=== PATIENT | male | born 1955 | race Caucasian/White ===

== ENCOUNTER 2022-10-12 07:08 | Outpatient (CLI) | payer MEDICARE, SELFPAY ==
--- NOTE | ~2022-10-12 | MR_ITS ---
EXAMINATION: MR brain/brain stem wo/w con DATE: 10/12/2022 08:19 INDICATION: Near syncope. TECHNIQUE: Magnetic resonance imaging (MRI) of the brain and brainstem was performed without and with 14 mL MultiHance intravenous contrast. COMPARISON: None. FINDINGS: There are scattered areas of nonspecific increased T2-weighted signal intensity in the cere bral white matter, which is within normal limits for the patient's age. There is no intracranial hemo rrhage, acute infarction, or abnormal intracranial mass lesion. The ventricles are normal in size. Th e orbits are normal. The mastoid air cells are normal. IMPRESSION: 1. Normal aging brain. Reviewed, dictated and finalized at location A. IMPRESSION: 1. Normal aging brain.
--- NOTE | ~2022-10-12 | US_ITS ---
EXAMINATION: US carotid duplex BI DATE: 10/12/2022 08:28 INDICATION: Near syncope. TECHNIQUE: Grayscale, color Doppler, and pulsed Doppler images of the cervical carotid arteries were obtained. The degree of vessel stenosis is placed in one of the following categories: normal, <50%, 5 0-69%, >=70% but less than near-occlusion, near-occlusion, or total occlusion. Note that percent sten osis relative to normal distal artery lumen diameter is indirectly measured from velocity measurement s as described by Salvatore, et al. Radiology 2003; 229:340-346. COMPARISON: None. FINDINGS: RIGHT: The right common carotid artery (CCA) peak systolic velocity (PSV) is 108 cm/s. The right internal ca rotid artery (ICA) PSV is 85 cm/s. The right ICA end-diastolic velocity (EDV) is 28 cm/s. The right I CA/CCA PSV ratio is 0.8. Grayscale and color Doppler images yield an estimate of <50% diameter reduct ion from plaque in the ICA. There is antegrade flow in the right vertebral artery. LEFT: The left CCA PSV is 101 cm/s. The left ICA PSV is 68 cm/s. The left ICA EDV is 22 cm/s. The left ICA/ CCA PSV ratio is 0.7. Grayscale and color Doppler images yield an estimate of <50% diameter reduction from plaque in the ICA. There is antegrade flow in the left vertebral artery. IMPRESSION: 1. <50% stenosis in the right internal carotid artery. 2. <50% stenosis in the left internal carotid artery. Reviewed, dictated and finalized at location A.
== END 2022-10-12 07:09 | disposition home or self-care (01) ==
PROVIDERS: PCP Physician Assistant; Visit Provider Physician Assistant
DX: R55 Syncope and collapse (principal); I65.23 Occlusion and stenosis of bilateral carotid arteries
CPT/HCPCS: 70553; 93880; A9577

== ENCOUNTER 2022-10-21 11:03 | Outpatient (CLI) | payer MEDICARE, SELFPAY ==
[2022-10-21 11:58] LABS: Basophils Absolute Auto 0.1 K/mm3 (0.0-0.1); Basophils Percent Auto 1.4 % (0.2-1.2); Eosinophils Absolute Auto 0.2 K/mm3 (0-0.3); Eosinophils Percent Auto 2.3 % (0-4.4); Hemoglobin 16.3 g/dL (14.0-18.0); Immature Granulocyte Absolute 0.17 K/mm3 (0.00-0.031); Immature Granulocyte Percent A 2.6 % (0-0.5); Lymphocytes Absolute Auto 1.73 K/mm3 (0.9-3.2); Lymphocytes Percent Auto 26.9 % (18.3-44.2); Mean Corpuscular Hemoglobin 30.9 pg (26-34); Mean Corpuscular Volume 90.9 fl (80-100); Mean Platelet Volume 9.5 fl (7.4-10.4); Monocytes Absolute Auto 0.6 K/mm3 (0.1-0.6); Neutrophils Absolute Auto 3.7 K/mm3 (1.3-6.7); Neutrophils Percent Auto 57.8 % (45.5-73.1); Platelet Count Result 221 k/mm3 (150-375); Red Blood Count 5.28 M/mm3 (4.6-6.20); Red Cell Distribution Width 12.9 % (11.5-14.5); White Blood Count 6.4 K/mm3 (4.5-10.0)
[2022-10-21 12:37] LABS: Alanine Aminotransferase 46 U/L (6-50); Albumin Level 4.3 g/dL (3.5-5.1); Alkaline Phosphatase 72 U/L (38-126); Anion Gap 5 mmol/L (8-16); Aspartate Amino Transferase 36 U/L (17-59); Bilirubin,Total 0.9 mg/dL (0.2-1.3); Blood Urea Nitrogen 16 mg/dL (9-20); Calcium 9.2 mg/dL (8.4-10.2); Carbon Dioxide 30 mmol/L (22-30); Chloride 104 mmol/L (98-107); Cholesterol 178 mg/dL (0-200); Estimated Glomerular Filt Rate > 60; Glucose 103 mg/dL (65-110); HDL Direct 44 mg/dL; Potassium 4.6 mmol/L (3.4-5.0); Sodium 139 mmol/L (137-145); Triglycerides 124 mg/dL (<150)
[2022-10-21 12:47] LABS: Hemoglobin A1C 5.5 % (<5.7)
[2022-10-21 12:48] LABS: LDL Cholesterol Direct 105 mg/dL
[2022-10-21 13:19] LABS: Free T4 Free Thyroxine 0.91 ng/mL (0.78-2.19)
== END 2022-10-21 11:04 | disposition home or self-care (01) ==
PROVIDERS: PCP Physician Assistant; Visit Provider Physician Assistant
DX: Z13.1 Encounter for screening for diabetes mellitus (principal); Z79.899 Other long term (current) drug therapy; R55 Syncope and collapse; Z13.220 Encounter for screening for lipoid disorders
CPT/HCPCS: 36415; 80053; 80061; 83036; 84439; 84443; 85025

== ENCOUNTER 2022-10-28 17:09 | Emergency (ER) | payer MEDICARE, SELFPAY ==
--- NOTE | ~2022-10-28 | XR_ITS ---
EXAMINATION: XR finger 3rd RT min 2V DATE: 10/28/2022 17:58 INDICATION: Laceration to the palmar aspect of the right third distal phalanx TECHNIQUE: Dorsal palmar, lateral and oblique views of the right third digit were obtained COMPARISON: None FINDINGS: There is a minute density potentially a foreign body which projects within 1.7 mm of the level of the skin surface at the radial/palmar side of the base of the third distal phalanx. Bone alignment is no rmal. No acute fracture. Old healed diaphyseal fracture of the right fourth metacarpal. Mild osteoart hritis at the third metacarpophalangeal and multiple interphalangeal joints. IMPRESSION: 1. No acute osseous abnormality. 2. Minute, significantly less than 1 mm density, potentially a foreign body located relatively close to the skin surface at the radial/palmar side of the base of the third distal phalanx. Reviewed, dictated and finalized at location A. IMPRESSION: 1. No acute osseous abnormality. 2. Minute, significantly less than 1 mm density, potentially a foreign body loc ated relatively close to the skin surface at the radial/palmar side of the base of the third distal phalanx.
[2022-10-28 17:10] VITALS: BP 124/83; PULSE 70; RESP 16; TEMP 36.8; O2SAT 99
--- NOTE | 2022-10-28 17:37 | ED.WOUNDLAC ---
HPI - Wound/Laceration General Chief Complaint: Wound/Laceration <Smita Dowell PA-C - Last Filed: 10/28/22 22:21> Stated Complaint: cut the tip of two fingers <GAYLE Mattson Last Filed: 10/28/22 22:21> Time Seen by Provider: 10/28/22 17:22 <GAYLE Mattson Last Filed: 10/28/22 22:21> History of Present Illness HPI narrative: 67 y/o M reports for evaluation of a skin avulsion to the distal aspect of his right third finger and right fifth finger that occurred 1 hour prior to arrival while he was using a angelica to cut onions. He denies paresthesias or difficulty moving his hand. Patient reports his last tetanus shot was 2 years ago. He is not on any blood thinners. Denies other complaints or injuries. Pt is established with a hand surgeon from a previous injury. <Smita Dowell PA-C - Last Filed: 10/28/22 22:21> Related Data Allergies/Adverse Reactions: Allergies Allergy/AdvReac Type Severity Reaction Status Date / Time Penicillins Allergy Unknown Verified 05/31/19 10:56 <Smita Dowell PA-C - Last Filed: 10/28/22 22:21> Review of Systems Review of Systems: CONSTITUTIONAL: Denies fever, chills EYES: Denies visual changes, redness, or discharge. ENT: Denies rhinorrhea, congestion, sore throat, or otalgia. CARDIOVASCULAR: Denies chest pain, palpitations, or edema. RESPIRATORY: Denies cough or dyspnea. GASTROINTESTINAL: Denies abdominal pain, nausea, vomiting, or diarrhea. GENITOURINARY: Denies dysuria or hematuria. SKIN: See HPI MUSCULOSKELETAL: Denies back pain, joint pain, or myalgia. NEUROLOGIC: Denies headache, numbness, dizziness, or weakness. PSYCHIATRIC: Denies anxiety or depression. <GAYLE Mattson Last Filed: 10/28/22 22:21> Exam Narrative: GENERAL: Well-appearing, in no acute distress. HEAD: Normocephalic NECK: Supple. CHEST: No respiratory distress. Clear to auscultation, no adventitious breath sounds. HEART: Regular rate and rhythm. No murmur heard. Normal peripheral pulses. EXTREMITIES: Normal range of motion. No edema. SKIN: 1 cm skin avulsion to the distal aspect of the right third finger with small exposure of the muscle, mildly bleeding. 1/4 cm skin avulsion to the distal aspect of the right fifth finger, bleeding controlled. No foreign bodies or other deep structures visualized. Sensation intact throughout. Full range of motion of all fingers. DP pulse 2+. Cap refill less than 2. NEURO: No focal deficits. Alert and oriented x3. PSYCH: Normal mood and affect. <Smita Dowell PA-C - Last Filed: 10/28/22 22:21> Course VENDING ATTENDANT/PA Physician Supervision ITS Impressions Finger X-Ray 10/28/22 18:04 IMPRESSION: 1. No acute osseous abnormality. 2. Minute, significantly less than 1 mm density, potentially a foreign body located relatively close to the skin surface at the radial/palmar side of the base of the third distal phalanx. <Vanita Vargas MD - Last Filed: 10/31/22 01:44> Vital Signs Vital signs: Vital Signs Temperature 98.2 F 10/28/22 17:10 Pulse Rate 70 10/28/22 17:10 Respiratory Rate 16 10/28/22 17:10 Blood Pressure 124/83 10/28/22 17:10 Pulse Oximetry 99 10/28/22 17:10 Temperature 98.2 F 10/28/22 17:10 Pulse Rate 77 10/28/22 20:02 Respiratory Rate 18 10/28/22 20:02 Blood Pressure 119/74 10/28/22 20:02 Pulse Oximetry 99 10/28/22 20:02 <Smita Dowell PA-C - Last Filed: 10/28/22 22:21> Vital Signs Temperature 98.2 F 10/28/22 17:10 Pulse Rate 70 10/28/22 17:10 Respiratory Rate 16 10/28/22 17:10 Blood Pressure 124/83 10/28/22 17:10 Pulse Oximetry 99 10/28/22 17:10 Temperature 98.2 F 10/28/22 17:10 Pulse Rate 77 10/28/22 20:02 Respiratory Rate 18 10/28/22 20:02 Blood Pressure 119/74 10/28/22 20:02 Pulse Oximetry 99 10/28/22 20:02 <Vanita Vargas MD - Last Filed: 10/31/22 01:44>
[2022-10-28] MEDS: HYDROcodone/acetaminophen (*CRX) 5-325 MG TABLET 1 TAB PO ×2 (17:50→19:21)
[2022-10-28] MEDS: CEPHALEXIN 500 MG CAPSULE PO (19:09)
[2022-10-28] MEDS: CELLULOSE OXIDIZED 2 x 3 INCH 1 PKT XX (19:22)
[2022-10-28 20:02] VITALS: BP 119/74; PULSE 77; RESP 18; O2SAT 99
== END 2022-10-28 20:00 | disposition home or self-care (01) ==
PROVIDERS: Emergency Provider Physician Assistant; PCP Physician Assistant
DX: S61.212A Laceration without foreign body of right middle finger without damage to nail, initial encounter (principal); W26.8XXA Contact with other sharp object(s), not elsewhere classified, initial encounter
CPT/HCPCS: 73140; 99283; A9270

== ENCOUNTER 2023-12-22 06:16 | Day surgery (SDC) | payer MEDICARE, SELFPAY ==
[2023-11-17 15:04] VITALS: BMI 23.8
[2023-12-13 09:47] VITALS: BMI 23.6
--- NOTE | 2023-12-21 13:46 | P.PNAN_ITS ---
Anes - Initial Pre Proc Eval Procedure: Operation Date: 12/22/23 08:00 Proposed Procedures p Esophagogastroduodenoscopy - Jeffery Szymanski MD s Diagnostic Colonoscopy - Jeffery Szymanski MD Date/Time: 12/21/23 13:46 Surgeon: Jeffery Szymanski MD Pre Op Diagnosis: Dysphagia and Family HX Colon Cancer Patient Data Age: 68 Gender: M Height: 1.73 m Weight: 70.5 kg Allergies Allergy/AdvReac Type Severity Reaction Status Date / Time Penicillins Allergy Unknown Verified 12/22/23 06:53 Home Medications Medication Instructions Recorded Confirmed Type montelukast 10 mg tablet 10 mg PO DAILY 12/13/23 12/22/23 History omeprazole 40 mg capsule,delayed 40 mg PO DAILY 12/13/23 12/22/23 History release tadalafil 5 mg tablet 5 mg PO DAILY PRN Erectile 12/13/23 12/22/23 History Dysfunction Patient hx anesthesia problems: none Family hx anesthesia problems: none Results Review: All pre-operative results and documents have been reviewed as part of the pre- operative evaluation. [facility] Past Medical History Medical History (Updated 12/22/23 @ 07:14 by Jeffery Szymanski MD) GERD (gastroesophageal reflux disease) Surgical History Surgical History (Updated 12/21/23 @ 13:47 by Ronald Raya DO) History of cholecystectomy Social History Social History Smoking status: Never smoker Alcohol intake: current Alcohol use details: occasional Substance use: current Substance use type: marijuana Other substance usage details: 3X weekly Living arrangements: with family Spiritual care concerns: No Anes - Eval Final PreProcedure Day of Procedure 12/21/23 13:46 Patient weight: normal Heart: regular rate and rhythm Lungs: clear to auscultation and normal air movement Airway: Mallampati scale class II Neurological: alert and oriented Last oral intake: >/= 8 hours ASA classification: II Emergent: no Anesthetic plan: proceed Anesthesia type and monitoring: general GIVS and standard monitoring Results Review: All pre-operative results and documents have been reviewed as part of the pre- operative evaluation. Informed Consent: The patient's anesthetic plan and its attendant risks and benefits were discussed with the patient/family/POA. Questions were solicited and answers provided to the satisfaction of the patient/family/POA.
[2023-12-22 06:55] VITALS: BP 123/72; PULSE 74; RESP 20; TEMP 36.9; O2SAT 100; BMI 23.8
--- NOTE | 2023-12-22 07:12 | PM.HPGS ---
History of Present Illness History of Present Illness Consent: Risks, benefits, and alternatives have been discussed and questions answered. Patient agrees to proceed with procedure. Chief complaint: Dysphagia and Family HX Colon Cancer Narrative: Kameron Marcus is a 68 year old male presents for both colonoscopy and EGD. Patient's father had colon cancer. Patient's brother has had colon polyps. Patient reports that his own weight appetite and bowel movements are normal. Previous colonoscopy fiber 6 years ago was unremarkable. Patient presents today for screening colonoscopy. Additionally patient has noted difficulty swallowing with large pieces of food exclude organic disease. Patient reports that his father had a distal esophageal web requiring dilatation in the past. Review of Systems Review of Systems: All systems reviewed & are unremarkable except as noted in HPI and below PMFSH Past Medical History Medical History (Updated 12/22/23 @ 07:14 by Jeffery Szymanski MD) GERD (gastroesophageal reflux disease) Surgical History Surgical History (Updated 12/21/23 @ 13:47 by Ronald Raya DO) History of cholecystectomy Social History Social History Smoking status: Never smoker Alcohol intake: current Alcohol use details: occasional Substance use: current Substance use type: marijuana Other substance usage details: 3X weekly Living arrangements: with family Spiritual care concerns: No Meds Home Medications and Allergies Home Medications Medication Instructions Recorded Confirmed Type montelukast 10 mg tablet 10 mg PO DAILY 12/13/23 12/22/23 History omeprazole 40 mg capsule,delayed 40 mg PO DAILY 12/13/23 12/22/23 History release tadalafil 5 mg tablet 5 mg PO DAILY PRN Erectile 12/13/23 12/22/23 History Dysfunction Allergies Allergy/AdvReac Type Severity Reaction Status Date / Time Penicillins Allergy Unknown Verified 12/22/23 06:53 Vital Signs Vital Signs - 24 hr 12/22/23 06:55 Temperature 98.4 F Pulse Rate 74 Respiratory Rate 20 Blood Pressure 123/72 Pulse Oximetry 100 Oxygen Delivery Room Air Exam Narrative: Physical exam reveals patient to be alert. Vital signs stable. HEENT exam is unremarkable. Patient is anicteric. Lungs are clear to auscultation and percussion per is without murmur or extra sounds. Abdomen bowel sounds are present soft nontender with no organomegaly digital external rectal exam normal. Assessment and Plan Assessment and plan (1) Screen for colon cancer: Code(s): Z12.11 - Encounter for screening for malignant neoplasm of colon Status: Acute Assessment and Plan: Patient has a family history of colon cancer in his father his brother had polyps. Suggest follow-up colonoscopy be performed at 5 year intervals. (2) Dysphagia: Code(s): R13.10 - Dysphagia, unspecified Status: Acute Assessment and Plan: Patient notes occasional difficulty swallowing with large pieces of food. EGD is requested. Further recommendations may be given after endoscopy.
[2023-12-22] MEDS: LACTATED RINGERS 1,000 ML 150 ML IV CONT (07:17)
[2023-12-22 08:20] VITALS: BP 103/67; PULSE 73; RESP 15; O2SAT 98
[2023-12-22 08:30] VITALS: BP 99/65; PULSE 63; RESP 15; O2SAT 98
[2023-12-22 08:40] VITALS: BP 109/83; PULSE 70; RESP 16; O2SAT 100
--- NOTE | 2023-12-22 15:04 | WPDANESPN ---
Anes - Prog Note Post-Op Date/Time: 12/22/23 15:04 Cardiovascular status: normal Respiratory status: normal Airway patency: baseline Mental status: baseline Post-Op hydration status: normal Vital Signs: Last Vital Signs Temp 36.9 C 12/22/23 06:55 Pulse 70 12/22/23 08:40 Resp 16 12/22/23 08:40 BP 109/83 12/22/23 08:40 Pulse Ox 100 12/22/23 08:40 O2 Del Method Room Air 12/22/23 08:40 Pain Score (VAS): 0 I/O: Intake & Output 12/21/23 12/22/23 12/22/23 23:59 07:59 15:59 Intake Total 650 Balance 650 Post-procedural complaints: none Patient Feedback: Patient satisfied with anesthetic care. Other Findings: Patient vital signs back to baseline. Patient denies nausea and vomiting. Patient's pain under control. Patient OK for discharge.
== END 2023-12-22 09:03 | disposition home or self-care (01) ==
PROVIDERS: PCP Physician Assistant; Visit Provider Internal Medicine Gastroenterology
PROC: 0DJ08ZZ Inspection of Upper Intestinal Tract, Via Natural or Artificial Opening Endoscopic (ICD-10-PCS; CPT 43235; principal; 2023-12-22 08:00)
PROC: 0DJD8ZZ Inspection of Lower Intestinal Tract, Via Natural or Artificial Opening Endoscopic (ICD-10-PCS; CPT 45378; 2023-12-22 08:00)
DX: Z80.0 Family history of malignant neoplasm of digestive organs (principal); R13.19 Other dysphagia; D12.2 Benign neoplasm of ascending colon; K64.8 Other hemorrhoids
CPT/HCPCS: 45385; 43235

== ENCOUNTER 2023-12-22 07:41 | Outpatient (NON) | payer MEDICARE, SELFPAY | END 2023-12-22 07:42 | disposition home or self-care (01) | LOC: ANHLAB 12-23 07:44 | PROVIDERS: PCP Physician Assistant; Visit Provider Internal Medicine Gastroenterology | DX: Z12.11 Encounter for screening for malignant neoplasm of colon (principal) | CPT/HCPCS: 88305 ==

== ENCOUNTER 2024-01-15 10:10 | Outpatient (CLI) | payer MEDICARE, SELFPAY ==
[2024-01-15 10:47] LABS: Basophils Absolute Auto 0.1 K/mm3 (0.0-0.1); Basophils Percent Auto 0.8 % (0.2-1.2); Eosinophils Absolute Auto 0.2 K/mm3 (0-0.3); Eosinophils Percent Auto 3.4 % (0-4.4); Hematocrit 47.5 % (42.0-52.0); Hemoglobin 16.4 g/dL (14.0-18.0); Immature Granulocyte Percent A 1.5 % (0-0.5); Lymphocytes Absolute Auto 1.69 K/mm3 (0.9-3.2); Lymphocytes Percent Auto 26.1 % (18.3-44.2); Mean Corpuscular HGB Conc 34.5 g/dl (32-36); Mean Corpuscular Hemoglobin 31.2 pg (26-34); Mean Corpuscular Volume 90.5 fl (80-100); Mean Platelet Volume 9.3 fl (7.4-10.4); Monocytes Absolute Auto 0.6 K/mm3 (0.1-0.6); Monocytes Percent Auto 9.6 % (2.6-8.5); Neutrophils Absolute Auto 3.8 K/mm3 (1.3-6.7); Neutrophils Percent Auto 58.6 % (45.5-73.1); Platelet Count Result 207 k/mm3 (150-375); Red Blood Count 5.25 M/mm3 (4.6-6.20); Red Cell Distribution Width 12.5 % (11.5-14.5); White Blood Count 6.5 K/mm3 (4.5-10.0)
[2024-01-15 11:01] LABS: Alanine Aminotransferase 42 U/L (6-50); Albumin Level 4.4 g/dL (3.5-5.1); Alkaline Phosphatase 72 U/L (38-126); Anion Gap 7 mmol/L (4-12); Aspartate Amino Transferase 31 U/L (17-59); Blood Urea Nitrogen 18 mg/dL (9-20); Carbon Dioxide 27 mmol/L (22-30); Chloride 104 mmol/L (98-107); Cholesterol 185 mg/dL (0-200); Estimated Glomerular Filt Rate > 60; Glucose 131 mg/dL (65-110); HDL Direct 42 mg/dL; Potassium 4.6 mmol/L (3.4-5.0); Sodium 138 mmol/L (137-145); Triglycerides 87 mg/dL (<150)
[2024-01-15 11:12] LABS: LDL Cholesterol Direct 112 mg/dL
[2024-01-15 11:33] LABS: Free T4 Free Thyroxine 0.99 ng/mL (0.78-2.19)
== END 2024-01-15 10:11 | disposition home or self-care (01) ==
PROVIDERS: PCP Physician Assistant; Visit Provider Physician Assistant
DX: Z79.899 Other long term (current) drug therapy (principal); Z13.220 Encounter for screening for lipoid disorders
CPT/HCPCS: 36415; 80048; 80061; 80076; 84439; 84443; 85025

== ENCOUNTER 2024-02-10 13:44 | Outpatient (CLI) | payer MEDICARE, SELFPAY ==
[2024-02-10 14:51] LABS: Hemoglobin A1C 5.9 % (<5.7)
== END 2024-02-10 13:45 | disposition home or self-care (01) ==
PROVIDERS: PCP Physician Assistant; Visit Provider Physician Assistant
DX: R73.09 Other abnormal glucose (principal)
CPT/HCPCS: 36415; 83036

== ENCOUNTER 2025-04-21 09:15 | Outpatient (CLI) | payer MEDICARE, SELFPAY ==
--- OUTSIDE RECORDS SUMMARY | 2021-11-06 09:15 | XMS_ITS | Continuity of Care Document ---
Author Organization [facility] Address [address] [place] [address] Phone Care Team Providers Care Paleontology Teacher Name Role Phone Yulia Harrell OT Unavailable Unavailable Procedures Procedure Date Neuromuscular Re-Ed Therapeutic Activities Manual Therapy Hot or Cold Pack Neuromuscular Re-Ed Progress Note Therapeutic Activities Hot or Cold Pack Manual Therapy Manual Therapy Therapeutic Activities Neuromuscular Re-Ed Therapeutic Activities Neuromuscular Re-Ed Manual Therapy Therapeutic Activities Neuromuscular Re-Ed Therapeutic Exercise Manual Therapy Electrical Stimulation Hot or Cold Pack Therapeutic Activities Therapeutic Exercise Neuromuscular Re-Ed Manual Therapy Hot or Cold Pack Hot or Cold Pack Therapeutic Activities Therapeutic Exercise Manual Therapy Progress Note Therapeutic Activities Therapeutic Exercise Manual Therapy Neuromuscular Re-Ed Hot or Cold Pack Electrical Stimulation Therapeutic Activities Manual Therapy Neuromuscular Re-Ed Therapeutic Exercise Hot or Cold Pack Electrical Stimulation Ultrasound Therapeutic Activities Neuromuscular Re-Ed Therapeutic Exercise Electrical Stimulation Hot or Cold Pack Manual Therapy Therapeutic Activities Manual Therapy Neuromuscular Re-Ed Hot or Cold Pack Neuromuscular Re-Ed Manual Therapy Hot or Cold Pack Ultrasound Therapeutic Activities Progress Note Neuromuscular Re-Ed Hot or Cold Pack Therapeutic Exercise Manual Therapy Electrical Stimulation Neuromuscular Re-Ed Therapeutic Activities Electrical Stimulation Manual Therapy Hot or Cold Pack Therapeutic Exercise Therapeutic Activities Therapeutic Exercise Neuromuscular Re-Ed Hot or Cold Pack Electrical Stimulation Therapeutic Activities Neuromuscular Re-Ed Therapeutic Exercise Hot or Cold Pack Electrical Stimulation Manual Therapy Therapeutic Activities Therapeutic Exercise Neuromuscular Re-Ed Hot or Cold Pack Electrical Stimulation Progress Note Neuromuscular Re-Ed Therapeutic Exercise Therapeutic Activities Manual Therapy Hot or Cold Pack Therapeutic Activities Neuromuscular Re-Ed Therapeutic Exercise Electrical Stimulation Hot or Cold Pack Therapeutic Activities Neuromuscular Re-Ed Therapeutic Exercise Hot or Cold Pack Electrical Stimulation Therapeutic Exercise Manual Therapy Neuromuscular Re-Ed Electrical Stimulation Hot or Cold Pack Neuromuscular Re-Ed Therapeutic Exercise Hot or Cold Pack Manual Therapy Electrical Stimulation Electrical Stimulation Neuromuscular Re-Ed Hot or Cold Pack Therapeutic Activities Therapeutic Exercise Therapeutic Activities Neuromuscular Re-Ed Therapeutic Exercise Electrical Stimulation Hot or Cold Pack LMB/Safety Pin Therapeutic Activities Neuromuscular Re-Ed Hot or Cold Pack Therapeutic Exercise Therapeutic Activities Therapeutic Exercise Hot or Cold Pack Neuromuscular Re-Ed Progress Note Therapeutic Activities Therapeutic Exercise Neuromuscular Re-Ed Hot or Cold Pack Therapeutic Exercise Neuromuscular Re-Ed Therapeutic Activities Electrical Stimulation Hot or Cold Pack Therapeutic Activities Therapeutic Exercise Neuromuscular Re-Ed Hot or Cold Pack Manual Therapy Therapeutic Activities Neuromuscular Re-Ed Therapeutic Exercise Hot or Cold Pack Manual Therapy Electrical Stimulation Therapeutic Activities Therapeutic Exercise Neuromuscular Re-Ed Hot or Cold Pack Manual Therapy Therapeutic Activities Neuromuscular Re-Ed Manual Therapy Hot or Cold Pack Therapeutic Exercise Therapeutic Activities Neuromuscular Re-Ed Therapeutic Exercise Hot or Cold Pack Therapeutic Activities Neuromuscular Re-Ed Hot or Cold Pack Therapeutic Exercise Therapeutic Activities Neuromuscular Re-Ed Hot or Cold Pack Therapeutic Exercise Therapeutic Activities Therapeutic Exercise Neuromuscular Re-Ed Manual Therapy Hot or Cold Pack Therapeutic Activities Neuromuscular Re-Ed Hot or Cold Pack Manual Therapy Therapeutic Exercise Therapeutic Activities Neuromuscular Re-Ed Hot or Cold Pack Manual Therapy Therapeutic Exercise Neuromuscular Re-Ed Therapeutic Exercise Manual Therapy Therapeutic Activities Neuromuscular Re-Ed Therapeutic Exercise Therapeutic Exercise Therapeutic Activities OT Evaluation Low Complexity Progress Note Therapeutic Activities Neuromuscular Re-Ed Therapeutic Exercise Hot or Cold Pack Ultrasound Ultrasound Hot or Cold Pack Therapeutic Activities Neuromuscular Re-Ed Therapeutic Exercise Therapeutic Activities Therapeutic Exercise Hot or Cold Pack Ultrasound Therapeutic Exercise Therapeutic Activities Neuromuscular Re-Ed Hot or Cold Pack Therapeutic Activities Ultrasound Hot or Cold Pack Therapeutic Exercise Neuromuscular Re-Ed Neuromuscular Re-Ed Therapeutic Exercise Therapeutic Activities Therapeutic Activities Therapeutic Exercise Hot or Cold Pack Neuromuscular Re-Ed Ultrasound Therapeutic Activities Hot or Cold Pack Therapeutic Exercise Neuromuscular Re-Ed Ultrasound Progress Note Therapeutic Activities Therapeutic Exercise Manual Therapy Neuromuscular Re-Ed Hot or Cold Pack Therapeutic Activities Neuromuscular Re-Ed Electrical Stimulation Therapeutic Exercise Ultrasound Hot or Cold Pack Therapeutic Activities Neuromuscular Re-Ed Therapeutic Exercise Hot or Cold Pack Manual Therapy Neuromuscular Re-Ed Therapeutic Activities Ultrasound Therapeutic Exercise Hot or Cold Pack Therapeutic Activities Neuromuscular Re-Ed Electrical Stimulation Hot or Cold Pack Ultrasound Neuromuscular Re-Ed Hot or Cold Pack Therapeutic Activities Therapeutic Exercise Neuromuscular Re-Ed Hot or Cold Pack Electrical Stimulation Therapeutic Activities Ultrasound Therapeutic Activities Hot or Cold Pack Electrical Stimulation Neuromuscular Re-Ed Electrical Stimulation Therapeutic Exercise Therapeutic Activities Hot or Cold Pack Neuromuscular Re-Ed Neuromuscular Re-Ed Therapeutic Activities Therapeutic Exercise Electrical Stimulation Hot or Cold Pack Therapeutic Activities Electrical Stimulation Ultrasound Neuromuscular Re-Ed Hot or Cold Pack Progress Note Neuromuscular Re-Ed Therapeutic Activities Therapeutic Exercise Ultrasound Hot or Cold Pack Therapeutic Activities Hot or Cold Pack Therapeutic Exercise Neuromuscular Re-Ed Therapeutic Activities Neuromuscular Re-Ed Therapeutic Exercise Hot or Cold Pack Ultrasound Progress Note Hot or Cold Pack Neuromuscular Re-Ed Therapeutic Activities Therapeutic Exercise Ultrasound Therapeutic Activities Hot or Cold Pack Neuromuscular Re-Ed Therapeutic Activities Neuromuscular Re-Ed Therapeutic Exercise Hot or Cold Pack Therapeutic Activities Neuromuscular Re-Ed Manual Therapy Hot or Cold Pack Therapeutic Exercise Neuromuscular Re-Ed Therapeutic Activities Therapeutic Exercise Manual Therapy Hot or Cold Pack Neuromuscular Re-Ed Therapeutic Exercise Therapeutic Activities Hot or Cold Pack Manual Therapy Electrical Stimulation Hot or Cold Pack Therapeutic Activities Neuromuscular Re-Ed Manual Therapy Therapeutic Exercise Therapeutic Exercise Electrical Stimulation Therapeutic Activities Manual Therapy Hot or Cold Pack Hot or Cold Pack Manual Therapy Therapeutic Exercise Therapeutic Activities Neuromuscular Re-Ed Therapeutic Activities Therapeutic Exercise Manual Therapy Hot or Cold Pack Neuromuscular Re-Ed Therapeutic Activities Therapeutic Exercise Hot or Cold Pack Therapeutic Activities Manual Therapy Therapeutic Exercise Hot or Cold Pack Neuromuscular Re-Ed Neuromuscular Re-Ed Therapeutic Exercise Hot or Cold Pack Therapeutic Activities Manual Therapy Therapeutic Activities Hot or Cold Pack Therapeutic Exercise Manual Therapy Ultrasound Progress Note Flexion Glove Therapeutic Exercise Therapeutic Activities Manual Therapy Therapeutic Activities Hot or Cold Pack Manual Therapy Therapeutic Exercise Therapeutic Activities Manual Therapy Therapeutic Exercise Neuromuscular Re-Ed Hot or Cold Pack Therapeutic Activities Manual Therapy Therapeutic Exercise Neuromuscular Re-Ed Hot or Cold Pack Glove - Edema 3/4 Therapeutic Exercise Manual Therapy Hot or Cold Pack Progress Note Manual Therapy Therapeutic Activities Hot or Cold Pack Therapeutic Exercise Therapeutic Activities Therapeutic Exercise Manual Therapy Hot or Cold Pack Therapeutic Activities Manual Therapy Therapeutic Exercise Therapeutic Activities Therapeutic Exercise Manual Therapy Hot or Cold Pack Therapeutic Activities Manual Therapy Therapeutic Exercise Hot or Cold Pack Therapeutic Exercise Therapeutic Activities Manual Therapy Hot or Cold Pack Therapeutic Exercise Therapeutic Activities Hot or Cold Pack Manual Therapy Therapeutic Exercise Hot or Cold Pack Therapeutic Exercise Hot or Cold Pack OT Evaluation Moderate Complexity DBS Forearm/Hand Therapeutic Exercise Orthotic Mgmt and Training Advance Directives Directive Yes / No Effective Date File Name No Information Encounters Encounter Description Practice Location Reason(s) For Visit Diagnoses Date Provider Providers Copied on Encounter [facility], [address] [address], [place], [place], [id number], [place] tel:[phone] [place] No Information 2 Harrell Yulia. . Referring Provider: Seferino Denneyrohit, [address] [place] [address], [place], [address]. tel:[phone] [facility], [address] [place], [place] [address], [place], [place], [id number], tel:[phone] [place] No Information 2 Harrell Yulia. . Referring Provider: Seferino Олегrohit, [address] [place] [address], [place], [address]. tel:[phone] [place], [place] [address] [address], [place], [place], [id number], tel:[phone] [place] No Information 2 Harrell Yulia. . Referring Provider: Seferino Олегrohit, [address] [place] [address], [place], [place], [facility]. tel:[phone] [place], [place] [address] [address], [place], [place], [address], [place] tel:[phone] [place] No Information 2 Harrell Yulia. . Referring Provider: Seferino Олегrohit, [address] [place] [address], [place], [address]. tel:[phone] [address], [place], [place], [id number], tel:[phone] [place] No Information 2 Wayne Aldo. . Referring Provider: Seferinoseymour Choudhary [address] [place] [address], [place], [address]. tel:[phone] [address], [place], [place], [id number], tel:[phone] [place] No Information 2 Wayne Aldo. . Referring Provider: Seferino Choudhary [address] [place] [address], [place], [place], [facility]. tel:[phone] [facility], [address] [place] [address] [address], [place], [address], [place] tel:[phone] [place] No Information May-0 - 2 Wayne Aldo. . Referring Provider: Seferino Олегrohit, [address] [place] [address], [place], [address]. tel:[phone], [place], [place], [address], [place] tel:[phone] [place] No Information May-0 2-202 2 Wayne Aldo. . Referring Provider: Seferino Олегrohit, [address] [place] [address], [place], [place], [facility]. tel:[phone] [address], [place], [place], [address], [place] tel:[phone] [place] No Information Apr-2 2 Wayne Aldo. . Referring Provider: Seferino Олегrohit, [address] [place] [address], [place], [address]. tel:[phone] [address], [place], [place], [address], [place] tel:[phone] [place] No Information Apr-2 2 Wayne Aldo. . Referring Provider: Seferino Олегrohit, [address] [place] [address], [place], [address]. tel:[phone], [place], [place], [address], [place] tel:[phone] [place] No Information Apr-2 2-202 2 Ayush Nugent. . Referring Provider: Seferino Олегrohit, [address] [place] [address], [place], [place], [facility]. tel:[phone] [facility], [address] [place] [address] [address], [place], [place], [address], [place] tel:[phone] [place] No Information Apr-1 2 Ayush Nugent. . Referring Provider: Seferino Pastorluis enrique, [address] [place] [address] [address], [place], [address]. tel:[phone], [place], [place], [address], tel:[phone] [place] No Information Apr-1 2 Wayne Aldo. . Referring Provider: Seferino Denneyrohit, [address] [place] [address], [place], [address]. tel:[phone], [place], [place], [id number], [place] tel:[phone] [place] No Information Apr-1 2 Wayne Aldo. . Referring Provider: Seferino Denneyrohit, [address] [place] [address], [place], [address]. tel:[phone], [place], [place], [id number], [place] tel:[phone] [place] No Information Apr-0 2 Wayne Aldo. . Referring Provider: Seferino Denneyrohit, [address] [place] [address], [place], [address]. tel:[phone], [place], [place], [address], [place] tel:[phone] [place] No Information Mar-3 - 2 Wayne Aldo. . Referring Provider: Seferino Олегrohit, [address] [place] [address], [place], [address]. tel:[phone], [place], [place], [address], [place] tel:[phone] [place] No Information Mar-2 2 Wayne Aldo. . Referring Provider: Seferino Олегrohit, [address] [place] [address], [place], [address]. tel:[phone] [facility], [address] [place], [place] [address], [place], [place], [address], [place] tel:[phone] [place] No Information Mar-2 4-202 2 Wayne Aldo. . Referring Provider: Seferino Choudhary, [address] [place] [address], [place], [address]. tel:[phone], [place], [place], [address], [place] tel:[phone] [place] No Information Mar-2 1-202 2 Wayne Aldo. . Referring Provider: Seferino Choudhary, [address] [place] [address], [place], [address]. tel:[phone] [address], [place], [place], [address], tel:[phone] [place] No Information Mar-1 7-202 2 Wayne Aldo. . Referring Provider: Seferino Choudhary, [address] [place] [address], [place], [address]. tel:[phone], [place], [place], [address], [place] tel:[phone] [place] No Information Mar-1 4-202 2 Wayne Aldo. . Referring Provider: Seferino Choudhary, [address] [place] [address], [place], [address]. tel:[phone], [place], [place], [address], [place] tel:[phone] [place] No Information Mar-1 0-202 2 Wayne Aldo. . Referring Provider: Seferino Choudhary, [address] [place] [address], [place], [place], [facility]. tel:[phone], [place], [place], [address], [place] tel:[phone] [place] No Information Mar-0 7-202 2 Wayne Aldo. . Referring Provider: Seferino Denneyrohit, [address] [place] [address] [address], [place], [address]. tel:[phone], [place], [place], [address], [place] tel:[phone] [place] No Information Mar-0 3-202 2 Wayne Aldo. . Referring Provider: Seferino Denneyrohit, [address] [place] [address], [place], [address]. tel:[phone], [place], [place], [address], [place] tel:[phone] [place] No Information Mar-0 2-202 2 Wayne Aldo. . Referring Provider: Seferino Denneyrohit, [address] [place] [address], [place], [address]. tel:[phone], [place], [place], [address], [place] tel:[phone] [place] No Information Feb-2 8-202 2 Wayne Aldo. . Referring Provider: Seferino Denneyorhit, [address] [place] [address], [place], [address]. tel:[phone], [place], [place], [address], [place] tel:[phone] [place] No Information Feb-2 3-202 2 Wayne Aldo. . Referring Provider: Seferino Denneyrohit, [address] [place] [address], [place], [address]. tel:[phone], [place], [place], [address], [place] tel:[phone] [place] No Information Feb-2 1-202 2 Wayne Aldo. . Referring Provider: Seferino Олегrohit, [address] [place] [address], [place], [address]. tel:[phone], [place], [place], [address], [place] tel:[phone] [place] No Information Feb-1 8 2 Ayush Nugent. . Referring Provider: Seferino Denneyrohit, [address] [place] [address], [place], [address]. tel:[phone] [facility], [address] [place], [place] [address] [address], [place], [place], [address], [place] tel:[phone] [place] No Information Feb-1 2 Wayne Aldo. . Referring Provider: Seferino Олегrohit, [address] [place] [address] [address], [place], [address]. tel:[phone] [facility] [address], [place], [place], [address], tel:[phone] [place] No Information b 2 Wayne Aldo. . Referring Provider: Seferino Choudhary, [address] [place] [address], [place], [facility]. tel:[phone] [facility], [address] [place], [place] [address] [address], [place], [place], [address], [place] tel:[phone] [place] No Information Feb-1 0 2 Wayne Aldo. . Referring Provider: Seferino Choudhary, [address] [place] [address], [place], [address]. tel:[phone] [facility] [address] [place] [address], [place], [place], [address], [place] tel:[phone] [place] No Information Feb-0 9 2 Eva Jess. . Referring Provider: Seferino Олегrohit, [address] [place] [address], [place], [facility]. tel:[phone] [facility], [address], [place], [place], [address], tel:[phone] [facility] No Information Feb-0 7- 2 Eva Jess. . Referring Provider: Seferino Denneyrohit, [address] [place] [address] [address], [place], [address]. tel:[phone], [place], [place], [address], [place] tel:[phone] [place] No Information 2 Eva Jess. . Referring Provider: Seferino Denneyrohit, [address] [place] [address], [place], [address]. tel:[phone], [place], [place], [address], [place] tel:[phone] [place] No Information 2 Wayne Aldo. . Referring Provider: Seferino Denneyrohit, [address] [place] [address], [place], [address]. tel:[phone], [place], [place], [address], [place] tel:[phone] [place] No Information 2 Eva Jess. . Referring Provider: Seferino Denneyrohit, [address] [place] [address], [place], [address]. tel:[phone], [place], [place], [address], [place] tel:[phone] [place] No Information 2 Eva Jess. . Referring Provider: Seferino Denneyrohit, [address] [place] [address], [place], [address]. tel:[phone], [place], [place], [address], [place] tel:[phone] [place] No Information 2 Wayne Aldo. . Referring Provider: Seferino Олегrohit, [address] [place] [address], [place], [address]. tel:[phone] [address] [address], [place], [place], [address], tel:[phone] [facility] No Information 2 Eva Jess. . Referring Provider: Seferino Choudhary, [address] [place] [address], [place], [facility]. tel:[phone] [facility] [address] [place] [address], [place], [place], [address], tel:[phone] [place] No Information 2 Eva Jess. . Referring Provider: Sefreino Choudhary, [address] [place] [address], [place], [address]. tel:[phone] [address], [place], [place], [address], tel:[phone] [place] No Information 1 Redohl Sanjuanita. . Referring Provider: Seferino Choudhary, [address] [place] [address], [place], [facility]. tel:[phone] [facility] [address] [place] [address], [place], [place], [address], tel:[phone] [place] No Information 1 Eva Jess. . Referring Provider: Seferino Choudhary, [address] [place] [address], [place], [address]. tel:[phone] [address], [place], [place], [address], tel:[phone] [place] No Information 1 Eva Jess. . Referring Provider: Seferino Choudhary, [address] [place] [address], [place], [facility]. tel:[phone] [address], [place], [place], [address], tel:[phone] [place] No Information 1 Eva Jess. . Referring Provider: Seferino Choudhary [address] [place] [address], [place], [address]. tel:[phone], [place], [address], [place] tel:[phone] [place] No Information Apr-1 2-202 1 Eva Jess. . Referring Provider: Seferino Choudhary, [address] [place] [address], [place], [facility]. tel:[phone], [place], [place], [address], [place] tel:[phone] [place] No Information Apr-0 5- 1 Eva Jess. . Referring Provider: Seferino Choudhary, [address] [place] [address], [place], [facility]. tel:[phone], [place], [place], [address], [place] tel:[phone] [place] No Information Mar-2 9- 1 Eva Jess. . Referring Provider: Seferino Choudhary, [address] [place] [address], [place], [facility]. tel:[phone], [place], [place], [address], [place] tel:[phone] [place] No Information Mar-2 - 1 Eva Jess. . Referring Provider: Seferino Choudhary, [address] [place] [address], [place], [address]. tel:[phone], [place], [address], [place] tel:[phone] [place] No Information Mar-2 2-202 1 Vea Jess. . Referring Provider: Seferino Choudhary, [address] [place] [address], [place], [facility]. tel:[phone], [place], [place], [address], tel:[phone] [place] No Information Mar-1 8-202 1 Eva Jess. . Referring Provider: Seferino Choudhary, [address] [place] [address], [place], [facility]. tel:[phone] [address], [place], [place], [address], tel:[phone] [place] No Information Mar-1 5-202 1 Eva Jess. . Referring Provider: Seferino Choudhary, [address] [place] [address], [place], [address]. tel:[phone], [place], [place], [address], tel:[phone] [place] No Information Mar-1 1-202 1 Eva Jess. . Referring Provider: Seferino Choudhary, [address] [place] [address], [place], [facility]. tel:[phone] [address], [place], [address], [place] tel:[phone] [place] No Information Mar-0 8-202 1 Eva Jess. . Referring Provider: Seferino Choudhary, [address] [place] [address], [place], [facility]. tel:[phone], [place], [address], [place] tel:[phone] [place] No Information Mar-0 4-202 1 Eva Jess. . Referring Provider: Seferino Choudhary [address] [place] [address], [place], [facility]. tel:[phone] [address], [place], [place], [address], tel:[phone] [place] No Information Mar-0 1-202 1 Eva Jess. . Referring Provider: Seferino Choudhary, [address] [place] [address], [place], [address]. tel:[phone], [place], [place], [address], [place] tel:[phone] [place] No Information b- 1 Eva Jess. . Referring Provider: Seferino Choudhary, [address] [place] [address], [place], [address]. tel:[phone], [place], [place], [address], [place] tel:[phone] [place] No Information b- 1 Eva Jess. . Referring Provider: Seferino Choudhary, [address] [place] [address], [place], [address]. tel:[phone] [address], [place], [place], [address], [place] tel:[phone] [place] No Information b- 1 Eva Jess. . Referring Provider: Seferino Choudhary, [address] [place] [address], [place], [address]. tel:[phone] [address], [place], [place], [address], tel:[phone] [place] No Information 1 Eva Jess. . Referring Provider: Seferino Choudhary, [address] [place] [address], [place], [address]. tel:[phone], [place], [id number], [place] tel:[phone] [place] No Information b 1 Eva Jess. . Referring Provider: Seferino Choudhary, [address] [place] [address] 21, [place], [address]. tel:[phone], [place], [place], [id number], [place] tel:[phone] [place] No Information 1 Eva Jess. . Referring Provider: Seferino Choudhary, [address] [place] [address] 21, [place], [address]. tel:[phone] [address], [place], [place], [id number], tel:[phone] [place] No Information 1 Eva Jess. . Referring Provider: Seferino Choudhary, [address] [place] [address] 21, [place], [address]. tel:[phone] [address], [place], [place], [id number], tel:[phone] [place] No Information 1 Eva Jess. . Referring Provider: Seferino Choudhary, [address] [place] [address] 21, [place], [address]. tel:[phone] [facility] [address] [place], [place] [address], [place], [place], [id number], [place] tel:[phone] [place] No Information 1 Eva Jess. . Referring Provider: Seferino Choudhary, [address] [place] [address], [place], [address]. tel:[phone], [place], [place], [id number], [place] tel:[phone] [place] No Information 1 Eva Jess. . Referring Provider: Seferino Choudhary, [address] [place] [address] 21, [place], [address]. tel:[phone] [address], [place], [place], [id number], tel:[phone] [place] No Information 1 Eva Jess. . Referring Provider: Seferino Choudhary, [address] [place] [address] 21, [place], [address]. tel:[phone] [facility] [address] [facility] [address], [place], [place], [id number], [place] tel:[phone] [place] No Information 1 Heslin Kenny. . Referring Provider: Seferino Choudhary, [address] [place] [address], [place], [place], [facility]. tel:[phone] [facility] [address] [facility] [address], [place], [place], [id number], [place] tel:[phone] [place] No Information 1 Heslin Kenny. . Referring Provider: Seferino Pastorluis enrique, [address] [place] [address], [place], [place], [facility]. tel:[phone] [facility] [address] [place] [address], [place], [place], [id number], [place] tel:[phone] [place] No Information 1 Arturo Mendieta. [address] [place] [address], [address] [place] [address], [facility], . tel:[phone] Referring Provider: Seferino Pastorluis enrique, [address] [place] [address] [address], [place], [facility]. tel:[phone] [facility] [address] [place] [address], [place], [place], [id number], [place] tel:[phone] [place] No Information 1 Arturo Mendieta. [address] [place] [address], [address] [place] [address], [facility], . tel:[phone] Referring Provider: Seferino Choudhary [address] [place] [address] [address], [place], [facility]. tel:[phone] [facility] [address] [facility] [address], [place], [place], [id number], tel:[phone] [place] No Information 0 Arturo Mendieta. [address] [place] [address], [address], [facility], . tel:[phone] Referring Provider: Seferino Choudhary, [address] [place] [address] [address], [place], [facility]. tel:[phone], [id number], tel:[phone] [place] No Information Dec-2 0 Morris Gayatri. [address] [place] [address], [address], [place], [facility], . tel:[phone] Referring Provider: Seferino Denneyrohit, [address] [place] [address] [address], [place], [facility]. tel:[phone], [id number], tel:[phone] [place] No Information Dec-2 0 Morris Gaaytri. [address] [place] [address], [address], [place], [facility], . tel:[phone] Referring Provider: Seferino Denneyrohit, [address] [place] [address] [address], [place], [facility]. tel:[phone], [id number], tel:[phone] [place] No Information Dec-1 0 Morris Gayatri. [address] [place] [address], [address], [place], [facility], . tel:[phone] Referring Provider: Seferion Denneyrohit, [address] [place] [address] [address], [place], [facility]. tel:[phone], [id number], tel:[phone] [place] No Information Dec-1 0 Morris Gayatri. [address] [place] [address], [address], [place], [place], [facility], . tel:[phone] Referring Provider: Seferino Denneyrohit, [address] [place] [address] [address], [place], [address]. tel:[phone] [address], [place], [place], [id number], tel:[phone] [place] No Information Dec-1 0-202 0 Arturo Mendieta. [address] [place] [address], [address], [place], [facility], . tel:[phone] Referring Provider: Seferino Choudhary, [address] [place] [address] [address], [place], [facility]. tel:[phone] [address], [place], [place], [id number], tel:[phone] [place] No Information Dec-0 7-202 0 Morris Gayatri. [address] [place] [address], [address], [place], [facility], . tel:[phone] Referring Provider: Seferino Choudhary, [address] [place] [address] [address] , [place], [facility]. tel:[phone] [address], [place], [place], [id number], tel:[phone] [place] No Information Dec-0 3-202 0 Morris Gayatri. [address] [place] [address], [address], [place], [facility], . tel:[phone] Referring Provider: Seferino Choudhary, [address] [place] [address] [address], [place], [facility]. tel:[phone], [place], [place], [id number], tel:[phone] [place] No Information Nov-3 0-202 0 Morris Gayatri. [address] [place] [address], [address], [place], [facility], . tel:[phone] Referring Provider: Seferino Choudhary, [address] [place] [address] [address], [place], [facility]. tel:[phone] [address], [place], [place], [id number], tel:[phone] [place] No Information 0 Morris Gayatri. [address] [facility] [address], [place], [facility], . tel:[phone] Referring Provider: Seferino Pastorluis enrique, [address] [place] [address] [address], [place], [facility]. tel:[phone], [id number], tel:[phone] [place] No Information 0 Morris Gayatri. [address] [place] [address], [address], [place], [facility], . tel:[phone] Referring Provider: Seferino Pastorluis enrique, [address] [place] [address] [address] , [place], [facility]. tel:[phone], [id number], tel:[phone] [place] No Information 0 Morris Gayatri. [address] [place] [address], [address], [place], [facility], . tel:[phone] Referring Provider: Seferino Pastorluis enrique, [address] [place] [address] [address], [place], [facility]. tel:[phone], [id number], tel:[phone] [place] No Information 0 Morris Gayatri. [address] [place] [address], [facility] [address], [place], [facility], . tel:[phone] Referring Provider: Seferino Choudhary, [address] [place] [address] [address], [place], [facility]. tel:[phone], [id number], tel:[phone] [place] No Information 0 Ayush Nugent. . Referring Provider: Seferino Choudhary, [address] [place] [address] [address], [place], [address]. tel:[phone], [id number], tel:[phone] [place] No Information 9-202 0 Arturo Mendieta. [address] [place] [address], [address], [place], [facility], . tel:[phone] Referring Provider: Seferino Choudhary, [address] [place] [address] [address], [place], [facility]. tel:[phone], [id number], tel:[phone] [place] No Information 2-202 0 Arturo Mendieta. [address] [place] [address], [address], [place], [facility], . tel:[phone] Referring Provider: Seferino Choudhary, [address] [place] [address] [address], [place], [facility]. tel:[phone], [id number], tel:[phone] [place] No Information 0 7-202 0 Arturo Mendieta. [address] [place] [address], [address], [place], [facility], . tel:[phone] Referring Provider: Seferino Choudhary, [address] [place] [address] [address], [place], [address]. tel:[phone], [id number], tel:[phone] [place] No Information 0 5-202 0 Arturo Mendieta. [address] [place] [address], [address], [place], [facility], . tel:[phone] Referring Provider: Seferino Choudhary, [address] [place] [address] [address], [place], [facility]. tel:[phone], [id number], tel:[phone] [place] No Information Sep-3 0-202 0 Arturo Mendieta. [address] [place] [address], [place] [address], . tel:[phone] Referring Provider: Seferino Choudhary, [address] [place] [address], [facility]. tel:[phone], [id number], tel:[phone] [place] No Information Sep-2 8- 0 Arturo Mendieta. [address] [place] [address], [place] [address], . tel:[phone] Referring Provider: Seferino Choudhary, [address] [place] [address], [facility]. tel:[phone], [id number], tel:[phone] [place] No Information Sep-2 3 0 Arturo Mendieta. [address] [place] [address], . tel:[phone] Referring Provider: Seferino Choudhary[address], [facility]. tel:[phone] Family History Family Member Type Diagnosis Age At Onset No Information Payers Payer name Insurance type Covered alliance party ID Authormerya tiata(s) AARP Medicare Complete 16 [id number] Social History Type Description Quantity Date Captured Comments Sex Male Smoking Status No Information Chief Complaint And Reason For Visit No Information Reason For Referral Reason For Referral No Information Plan Of Treatment Date Type Action Status Referral Ordered: PCP timeframe: 1 week. (related to Overweight) ordered Referral Ordered: Weight management: Referral to physician timeframe: 1 Month. (related to Overweight) ordered History Of Present Illness Encounter Date Complaint History Of Prese nt Illness No Information Functional Status Date Functional Assessmen t No Information Instructions Date Instruction Additional Infor mation No Information Assessments Type Assessment Date No Information Patient Care Teams Name Effective Dates (start - stop) Status Members No Information
--- OUTSIDE RECORDS SUMMARY | 2025-04-21 09:19 | XMS_ITS | Encounter Summary ---
Author Organization [facility] Address [address] [place] [address] Care Team Providers Care Twisting Frame Changer Name Role Phone Ishan Crump MD Primary Care Provider [phone] Encounter Details Date Type Department Care Team (Late st Contact Info) Description 03/15/2002 Outpatient Historical [facility] Internal Medicine [place] [facility] [place] [address] [facility] [address] [place] [phone] [place] [address] [facility] [address] [place], [place] [id number] Social History Tobacco Use Types Packs/Day Years Used Date Smoking Tobacco: Never Assessed Sex and Gender Information Value Date Recorded Sex Assigned at Not on file Legal Sex Male 2:16 PM CDT Gender Identity Not on file Sexual Orientation Not on file documented as of this encounter Plan of Treatment Not on file documented as of this encounter Visit Diagnoses Not on filedocumented in this encounter Care Teams Twisting Frame Changer Relationship Specialty Start Date End Date Ishan Crump MD [address] [place] [address] PCP - General Internal Medicine 02/14/20 documented as of this encounter
--- OUTSIDE RECORDS SUMMARY | 2025-04-21 09:19 | XMS_ITS | Data Portability ---
Author Organization [facility] [employer], Main Office Address [address] [place] [address] Assessment No assessment recorded. Plan of Treatment Reminders Order Date Submit Date Provider Last Modified By Organization Details Last Modified Time Details Appointments None recorded. Lab lipid panel, serum 2022 023 [facility] (Lab), [address] [place] [address], [address], 3 05:01:33 TSH + free T4, serum 2022 023 [facility] (Lab), [address] [place] [address], [address], 3 05:01:33 CBC w/ auto diff 2022 023 [facility] (Lab), [address] [place] [address], [address], 3 05:01:33 CMP, serum or plasma 2022 023 [facility] (Lab), [address] [place] [address], [address], 3 05:01:33 HbA1c (hemoglobin A1c), blood 2022 023 [facility] (Lab), [address] [place] [address], [address], 3 10:52:[address] referral 2022 023 [facility], [address] [place] [address], [address], 3 05:01:27 Procedures None recorded. Surgeries None recorded. Imaging US, duplex, carotid artery 2022 023 [facility], [address], [place], [address], 3 09:50:34 MRI, brain, w/wo contrast 2022 023 [facility], [facility] [address], [place], [address], 3 15:20:45 Medication Orders None recorded. Patient TargetsNo targets recorded. Patient InstructionsNo instructions recorded. Reason for Referral Eeg Technologist Referral for Yoly jenae in skin lesion Referring Physician: Key Perrin, Internal Medicine, Encounter Date: 09/30/2022 Results Created Date Observation Date Name Description Value Unit Range Abnormal Flag Note LastModifiedBy Organization Detail LastModifiedTime 06/30/19 22 06/27/2021 bahman can cardi olite stres s test (PROC ) No observ ation record ed. [id number] [facility] [address] [facility] [address], [place], [address], 08/12/2022 19:14:36 07/01/19 22 06/27/2021 myoca rdial perfu vanessa study w/ eject ion fract ion (PROC ) No observ ation record ed. [id number] [facility] [address] [facility] [address], [place], [address], 08/12/2022 19:14:36 10/13/19 23 10/12/2022 MRI, brain , w/wo contr ast No observ ation record ed. [address], [place], [address], 11/20/2022 10:27:34 10/30/19 23 10/28/2022 XR, finge r(s), 2 or more view No observ ation record ed. [place] [address], [place], [address], 10/30/2022 07:35:14 11/21/19 23 10/12/2022 US, chacho tee id arter y No observ ation record ed. [email or web address] [facility] [address], [place], [address], 11/20/2022 10:27:35 Result Notes None recorded. Problems Name Problem SNOMED Code Status Onset Date Resolution Date Notes Provider Name and Address Organization Details Recorded Time Near syncope 609476239 Active 023 MIGEL Loyola [address], [place], [address] , [employer] 3 12:17:42 Change in skin lesion 448348990 Active 023 MIGEL Loyola [address], [place], [address] , [employer] 3 12:20:00 Problem Notes None recorded. Procedures Surgical History Date Name Laterality Status Provider Name and Address Organization Details Recorded Time 02/13/20 Hand tendon reconstruction completed Not Available [facility] 08/12/2022 19:13:00 Cholecystectomy completed Not Available [facility] 08/12/2022 19:13:00 Imaging Results None recorded. Procedure Notes None recorded. Medical Equipment None Reported. Allergies Allergen ID Allergen Name Allergen Category Reaction Reaction Severity Criticality Documentation Date Start Date Code Code System Note Provider Name and Address Organization Details Recorded Time 21531 Product containin g penicilli n (product) medicatio n Not available Not available Not available 08/12/2022 03055 8001 SNOMED Not Available [facility] 3 19:14:35 Medications Name Sig Start Date Stop Date Status Note LastModified by Organization Details LastModified Time methocarbam ol 500 mg tablet TAKE 2 TABLET BY MOUTH EVERY 6 HOURS NEEDED FOR MUSCLE SPASMS 02/15 completed Not Available Not Available Not Available prednisone 10 mg tablet TAKE 2 TABLETS BY MOUTH ONCE DAILY FOR 5 DAYS 06/28 completed Not Available Not Available Not Available clindamycin HCl 300 mg capsule active Not Available Not Available Not Available cetirizine 10 mg tablet TAKE 1 TABLET BY MOUTH EVERY DAY NEEDED FOR ALLERGY SYMPTOMS 09/05 completed Not Available Not Available Not Available benzonatate 200 mg capsule TAKE 1 CAPSULE BY MOUTH THREE TIMES A DAY NEEDED FOR COUGH 06/28 completed Not Available Not Available Not Available hydrocodone 5 mg-acetamin ophen 325 mg tablet Take 1 tablet every 8 hours by oral route as needed. active Not Available Not Available No t Available acetaminoph en 300 mg-codeine 30 mg tablet TAKE 1 TABLET BY MOUTH 4 TIMES A DAY NEEDED FOR PAIN 02/15 completed Not Available Not Available Not Available tramadol 50 mg tablet TAKE 1 2 TABLETS BY MOUTH EVERY 6 HOURS NEEDED FOR PAIN 09/06 completed Not Available Not Available Not Available oxycodone-a cetaminophe n 5 mg-325 mg tablet active Not Available Not Available No t Available alprazolam 0.25 mg tablet TAKE 1 TABLET BY MOUTH THREE TIMES A DAY NEEDED 09/29 completed Not Available Not Available Not Available methocarbam ol 750 mg tablet TAKE 1 TABLET EVERY 4-6 HOURS BY MOUTH NEEDED. 02/15 completed Not Available Not Available Not Available bisacodyl 10 mg rectal suppository UNWRAP AND INSERT DIRECTED 09/05 completed Not Available Not Available Not Available gabapentin 300 mg capsule active Not Available Not Available Not Available methylpredn isolone 4 mg tablets in a dose pack TAKE 6 TABLETS ON DAY 1 DIRECTED ON PACKAGE AND DECREASE BY 1 TAB EACH DAY FOR A TOTAL OF 6 DAYS 02/14 completed Not Available Not Available Not Available albuterol sulfate HFA 90 mcg/actuati on aerosol inhaler INHALE 2 PUFFS BY MOUTH 4 TIMES DAILY NEEDED FOR SHORTNESS OF BREATH OR WHEEZING 09/05 completed Not Available Not Available Not Available fluticasone propionate 50 mcg/actuati on nasal spray,suspe nsion SPRAY 1 SPRAY INTO EACH NOSTRIL ONCE DAILY 09/05 completed Not Available Not Available Not Available tadalafil 5 mg tablet Take 1 tablet every day by oral route. active Not Available Not Available No t Available duloxetine 30 mg capsule,del ayed release 02/15 completed Not Available Not Available Not Available Boostrix Tdap 2.5 Lf unit-8 mcg-5 Lf/0.5 mL intramuscul ar syringe TO BE ADMINISTE RED BY PHARMACIS T FOR IMMUNIZAT ION active Not Available Not Available No t Available Gavilyte-C 240 gram-22.72 gram-6.72 gram-5.84 gram oral solution TAKE DIRECTED PER MD OFFICE 06/28 completed Not Available Not Available Not Available Fluzone High-Dose 2019-20 (PF) 180 mcg/0.5 mL intramuscul ar syringe TO BE ADMINISTE RED BY PHARMACIS T FOR IMMUNIZAT ION 06/28 completed Not Available Not Available Not Available Vitals Date Recorded Body mass index (BMI) Body height Oxygen saturation Oxygen saturation in Arterial blood by Pulse oximetry Heart rate Body temperature Body weight Systolic And Diastolic Provider Name and Address Organization Details Last Updated DateTime 2 24.1 kg/m2 175.26 cm 98 % 98 % 88 /min 97.7 [degF] 87516.9 9 g 120/80 mm[Hg] Not Available [facility] 3 19:13:23 Date Recorded Body mass index (BMI) Body height Oxygen saturation Oxygen saturation in Arterial blood by Pulse oximetry Heart rate Respiratory rate Body temperature Body weight Systolic And Diastolic Provider Name and Address Organization Details Last Updated DateTime 1 23.3 kg/m2 175.26 cm 98 % 98 % 68 /min 16 /min 97.2 [degF] 24853.5 9 g 116/64 mm[Hg] Not Available [facility] 3 19:13:23 Date Recorded Body height Body temperature Body mass index (BMI) Body weight Respiratory rate Oxygen saturation Oxygen saturation in Arterial blood by Pulse oximetry Heart rate Systolic And Diastolic Provider Name and Address Organization Details Last Updated DateTime 3 175.26 cm 98.1 [degF] 23.6 kg/m2 21537.7 8 g 16 /min 98 % 98 % 72 /min 138/80 mm[Hg] CELESTE [place] [facility] [place] [employer] [facility] 3 11:47:12 Social History Question Answer Notes LastModified by Organizat ion Details LastModified Time Tobacco Smoking Status Never Smoker Not Available [facility] 08/12/2022 19:12:59 What Is Your Level Of Caffeine Consumption? Moderate [id number] Information not available 08/12/2022 How Much Tobacco Do You Chew? None [id number] Information not available 08/12/2022 In The 14 Days Before Symptom Onset, Have You Had Close Contact With A Laboratory-confirm ed COVID-19 While That Case Was Ill? No [id number] Information not available 08/12/2022 In The 14 Days Before Symptom Onset, Have You Had Close Contact With A Person Who Is Under Investigation For COVID-19 While That Person Was Ill? No [id number] Information not available 08/12/2022 What Type Of Diet Are You Following? REGULAR [id number] Information not available 08/12/2022 Which Illicit Or Recreational Drugs Have You Used? None [id number] Information not available 08/12/2022 Have There Been Any Changes To Your Family Or Social Situation? No [email or web address] Information no t available 09/29/2022 Are There Any Guns Present In Your Home? Yes [id number] Information not available 08/12/2022 Do You Use Insect Repellent Routinely? No Information not available 09/29/2022 What Was The Date Of Your Most Recent Tobacco Screening? 09/06/2020 [id number] Information not available 08/12/2022 What Is Your Relationship Status? [email or web address] Information not available 09/29/2022 Do You Have Smoke And Carbon Monoxide Detectors In Your Home? Yes [email or web address] Information not available 09/29/2022 How Much Tobacco Do You Smoke? No [id number] Information not available 08/12/2022 Do You Use Sunscreen Routinely? Yes [email or web address] Information not available 09/29/2022 How Many Years Have You Smoked Tobacco? 0 [id number] Information not available 08/12/2022 Have You Recently Traveled Abroad? No [email or web address] Information not available 09/29/2022 Do You Have Any Dietary Restrictions? No [email or web address] Information not available 09/29/2022 Sex: Unknown Functional Status Question Answer Note LastModified by Organizat ion Details LastModified Time Do you use any illicit or recreational drugs? No [email or web address] Information not available 09/29/2022 Do you or have you ever used any other forms of tobacco or nicotine? No [email or web address] Information not available 09/29/2022 What is your level of alcohol consumption? Occasional [id number] Information not available 08/12/2022 Do you or have you ever used smokeless tobacco? Never used smokeless tobacco [id number] Information not available 08/12/2022 Are you currently employed? Yes [email or web address] Information not available 09/29/2022 What is your occupation? Self employed. [id number] Information not available 08/12/2022 Do you or have you ever used e-cigarettes or vape? Never used electronic cigarettes [id number] Information not available 08/12/2022 What is your exercise level? Heavy [id number] Information not available 08/12/2022 Mental Status None recorded. Family History Relationship Description Onset Age of this Age Resolved Age Notes LastModified by Organization Details LastModified Time Mother Congestive heart failure [id number] Not available 08/12/2022 19:13:01 Mother Hyperteloris m [id number] Not available 08/12/2022 19:13:01 Mother Alzheimer's disease [id number] Not available 08/12/2022 19:13:01 Father Hyperteloris m [id number] Not available 08/12/2022 19:13:01 Father Malignant neoplasm of colon [id number] Not available 08/12/2022 19:13:01 Paternal Grandmother Diabetes mellitus [id number] Not available 08/12/2022 19:13:01 Medical History Condition Response NERVE DISEASE N BLINDNESS N RHEUMATIC FEVER N KIDNEY STONES N BLADDER PROBLEMS N MRSA N OTHER # 1 N POLIO N LUNG DISEASE/DISORDER N RADIATION / CHEMOTHERAPY N COPD N Other # 2 N BLOOD DISEASES N SURGERY N EAR OR HEARING PROBLEMS N MUMPS N DEPRESSION (INCLUDING POST ) N BOWEL PROBLEMS N STROKE/TIA N ULCERS N BENIGN PROSTATIC HYPERPLASIA N MEASLES N MYOCARDIAL INFARCTION N OBESITY N GERD/NAUSEA N ANEURYSM N URINARY/BLADDER/KIDNEY PROBLEMS N CORONARY ARTERY DISEASE (CAD) N ADDICTION CONCERNS N Impotence N ENDOMETRIOSIS N USE OF BLOOD THINNERS N SKIN PROBLEMS Y GASTROINTESTINAL DISORDER N PERIPHERAL VASCULAR DISEASE N MUSCLE,JOINT OR BONE PROBLEMS N GASTROINTESTINAL BLEEDING N BLOOD CLOTS N ASTHMA N CATARACTS N ERECTILE DYSFUNCTION N VARICOSITIES N GI PROBLEMS N Low Testosterone N INFERTILITY N AIDS/HIV N CHEMOTHERAPY / RADIATION N LIVER DISEASE N MALE HYPOGONADISM N HYPERTENSION N Deficiency N ANXIETY DISORDER N BLOOD TRANSFUSION N ANEMIA/BLOOD DISORDER N CHRONIC EAR INFECTIONS N BRONCHITIS N TUBERCULOSIS N GLAUCOMA N FOOT PROBLEM N DIVERTICULITIS N SLEEP APNEA N CHICKENPOX N INFECTIOUS DISEASE N PROSTATE Y HEART ARRHYTHMIA N INSOMNIA N HIGH CHOLESTEROL / HYPERLIPIDEMIA N HYPERTHYROIDISM N EYE PROBLEMS Y NEUROLOGICAL PROBLEMS N EDEMA N CHRONIC PAIN SYNDROME N HYPOTHYROIDISM N CONSTIPATION N CAROTID BLOCKAGE N BACK / NECK PROBLEMS Y HAVE YOU BEEN HOSPITALIZED OR SEEN [facility] IN THE PAST YEAR ? N ATHEROSCLEROSIS N BREAST PROBLEMS N DIALYSIS N ECZEMA N OSTEOPOROSIS N ARTHRITIS N NO SIGNIFICANT PAST MEDICAL HISTORY N APPENDICITIS N DIABETES, TYPE N BAD TEETH N ENT N HEARTBURN / REFLUX N AUTISM SPECTRUM DISORDER (ASD) N HEPATITIS / LIVER DISEASE N GOUT N SLEEP DISORDER N ALZHEIMER'S DISEASE N Brain Problems N HERPES N DEMENTIA N SEIZURES/EPILEPSY N HEADACHES/MIGRAINES N VASCULAR DISEASE N PACEMAKER N Blood Disorder N DIZZINESS N KIDNEY DISEASE N HEART DISEASE/HEART PROBLEMS N MULTIPLE SCLEROSIS N CARDIAC ARRHYTHMIA N CANCER: SPECIFY N Gall Stones N ATRIAL FIBRILLATION N PULMONARY EMBOLISM N AUTOIMMUNE DISEASE N Immunizations Vaccine Type Date Status Note Provider Nam e and Address Organization Details Recorded Time COVID-19 vaccine, vector-nr, rS-ChAdOx1, PF, 0.5 mL 08/20/2020 completed Not Available [facility] 19:14:33 Influenza, high-dose, quadrivalent, PF 04/29/2019 completed Not Available [facility] 3 19:14:33 Tdap 02/13/2020 completed Not Available [facility] 08/12/2022 19:14:33 Past Encounters Encounter ID Performer Location Encounter Start Date Encounter Closed Date Diagnosis/Indication Diagnosis SNOMED-CT Code Diagnosis ICD10 Code Diagnosis IMO Codes Diagnosis Note [id number] MIGEL Loyola [facility] [place] [address] [place] [address] 09/06/2020 00:00:00 09/06/2020 11:37:40 [id number] MIGEL Loyola [facility] [place] [address] [place] [address] 06/20/2021 00:00:00 06/30/2021 16:07:11 [id number] MIGEL Loyola [facility] [place] [address] [place] [address] 09/30/2022 11:23:59 09/30/2022 12:29:12 Near syncope 051130775 R55 check u/s duplex carotid arteries, check MRI brain w/wo contrast, check labs Hyperlipid emia screening 116717524 Z13.220 Diabetes m ellitus screening 657650327 Z13.1 Long-term drug therapy 243208180 Z79.899 Change in skin lesion 39 5645798 L98.9 refer to Derm for skin lesion check Health Concerns Section Related Observation LastModified by Organization Detai ls LastModified Time None Recorded Concern Status LastModified by Organization Details LastModified Time None Recorded Advance Directives Directive None Recorded Payers Insurance Date Sequence Insurance Name Policy Number Policy Agarwal Covered Member ID Agarwal Member ID Guarantor Name 10/09/2022 1 [facility] (MEDICARE REPLACEMENT/A DVANTAGE - HMO) [id number] Kameron Marcus [id number] Kameron Marcus Notes Date Note Type Note Provider Name and Address Organization Details Recorded Time 09/30/2022 text/html Generic HPI TemplateReported by PatientPt states he has been blacking out while playing the trNeurogesXet. He says he has noticed it being more frequent the last year. When he plays his neck swell and when he gets the feeling that he is passing out he stops playing. He says afterwards he has blurred vision and light headed for a little while. He says it use to happen only when he stands but on Easter is happened while sitting. He did have a prostate exam yesterday and it was normal. MIGEL Loyola [address] [place] [address], [facility] [address], [place], [address], [facility] 10/08/2022 23:01:31
--- OUTSIDE RECORDS SUMMARY | 2025-04-21 09:19 | XMS_ITS | Clinical Summary ---
Author Organization [facility] Address [address] [place] [address] Care Team Providers Care Smoke Jumper Name Role Phone Key Perrin Primary Care Pr ovider Seferino Choudhary MD Unavailable Allergies Active Allergy Reactions Criticality Noted Date Comments Penicillins Unknown 02/15/2020 childhood Medications clindamycin (CLEOCIN) 300 mg capsule Take 300 mg by mouth 4 (four) times a day Active ibuprofen (ibuprofen) 200 mg tab/cap Take 800 mg by mouth as needed for pain Active acetaminophen (TYLENOL) 500 mg tablet Take 1,000 mg by mouth as needed for pain Active HYDROcodone-ashleigh taminophen (NORCO) 5-325 mg per tabletIndicatio ns:Pain Take 1-2 tablets by mouth every 4 (four) hours as needed for pain 30 tablet 02/16/2020 Active Surgical History Surgery Date Site/Laterality Comments CHOLECYSTECTOMY x2 Medical History Medical History Date Comments PONV (postoperative nausea and vomiting) GERD (gastroesophageal reflux disease) occas Spinal stenosis, cervical region Social History Tobacco Use Types Packs/Day Years Used Date Smoking Tobacco: Never Smokeless Tobacco: Never Alcohol Use Standard Drinks/Week Comments Yes 0 (1 standard drink = 0.6 oz pur e alcohol) occas Sex and Gender Information Value Date Recorded Sex Assigned at Not on file Legal 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 Gender Identity Not on file Sexual Orientation Not on file Last Filed Vital Signs Vital Sign Reading Time Taken Comments Blood Pressure 152/94 02/16/2020 3:10 PM CDT Pulse 71 02/16/2020 3:10 PM CDT Temperature 36.2 C (97.2 F) 02/16/2020 3:10 PM CDT Respiratory Rate 13 02/16/2020 3:10 PM CDT Oxygen Saturation 100% 02/16/2020 3:10 PM CDT Inhaled Oxygen Concentration - - Weight 70.3 kg (155 lb) 02/15/2020 12:40 PM CDT Height 172.7 cm (5' 8) 02/15/2020 12:40 PM CDT Body Mass Index 23.57 02/15/2020 12:40 PM CDT Plan of Treatment Health Maintenance Due Date Last Done Comments Colon Cancer Screening-Colonoscopy 1954 Depression Screening 1954 Fall Risk Assessment 1955 Hepatitis C Screening 1955 Hepatitis B Screening 01/26/1972 Zoster Vaccine (1 of 2) 01/26/2004 Pneumococcal vaccine 65+ (2 of 2 - PCV) 09/29/2012 0 09/30/2011 Abdominal Aortic Aneurysm (AAA) Screen 2019 Well Visit 65+ 2019 Covid-19 Vaccine (2 - 2024- season) 02/12/202502/2021 Influenza Vaccine (#1) 2025 04/19/2021, 2010 DTaP/Tdap/Td Vaccine (2 - Td or Tdap) 02/13/203007/2019 Insurance [employer]CR HMO REF [facility] MEDICARE ADVANTAGE Care Teams Smoke Jumper Relationship Specialty Start Date End Date Key Perrin PA PCP - General 02/15/20 Seferino Choudhary MD [address] [facility] [address] [place] [address] Surgeon Hand Surgery 02/16/20
--- OUTSIDE RECORDS SUMMARY | 2025-04-21 09:19 | XMS_ITS | Encounter Summary ---
Author Organization [facility] Address [address] [place] [address] Care Team Providers Care Oil Burner Technician Name Role Phone Ishan Crump MD Primary Care Provider [phone] Encounter Details Date Type Department Care Team (Late st Contact Info) Description 03/15/2002 Outpatient Historical [facility] [address] [phone] Bharat Cunningham MD Social History Tobacco Use Types Packs/Day Years [...] on filedocumented in this encounter Care Teams Oil Burner Technician Relationship Specialty Start Date End Date Ishan Crump MD [address] [place] [id number] PCP - General Internal Medicine 02/14/20 documented as of this encounter
--- OUTSIDE RECORDS SUMMARY | 2025-04-21 09:19 | XMS_ITS | Encounter Summary ---
Author Organization [facility] Address [address] [place] [address] Care Team Providers Care Metalsmith Helper Name Role Phone Ishan Crump MD Primary Care Provider [phone] Encounter Details Date Type Department Care Team (Late st Contact Info) Description 03/15/2002 Outpatient Historical [facility] Support [facility]. ([facility]) [address] [place] [address] Ted Fox MD NO ADDRESS ON FILE Social History Tobacco Use Types Packs/Day Years [...] on filedocumented in this encounter Care Teams Metalsmith Helper Relationship Specialty Start Date End Date Ishan Crump MD [address] [place] [address] PCP - General Internal Medicine 02/14/20 documented as of this encounter
--- OUTSIDE RECORDS SUMMARY | 2025-04-21 09:19 | XMS_ITS | Encounter Summary ---
Author Organization [employer] Address [address] [place] [address] Care Team Providers Care Bar Finish Operator Name Role Phone Ishan Crump MD Primary Care Provider [phone] Encounter Details Date Type Department Care Team (Latest Contact Info) Description 09/01/2001 Outpatient Historical [facility] Boo Henry MD NO ADDRESS ON FILE CHOLELITH W CHOLECYS NEC (Primary Dx) Social History Tobacco Use Types Packs/Day Years Used Date Smoking Tobacco: Never Assessed Sex and Gender Information Value Date Recorded Sex Assigned at Not on file Legal Sex Male 2:16 PM CDT Gender Identity Not on file Sexual Orientation Not on file documented as of this encounter Plan of Treatment Not on file documented as of this encounter Visit Diagnoses Diagnosis Calculus of gallbladder with other cholecystitis, without mention of obstruction- Primary documented in this encounter Care Teams Bar Finish Operator Relationship Specialty [place] [address] [place] [phone] PCP - General Internal Medicine 02/14/20 documented as of this encounter
--- OUTSIDE RECORDS SUMMARY | 2025-04-21 09:19 | XMS_ITS | Encounter Summary ---
Author Organization [facility] Address [address] [place] [address] Care Team Providers Care Inorganic Chemist Name Role Phone Ishan Crump MD Primary Care Provider Encounter Details Date Type Department Care Team (Late st Contact Info) Description 03/16/2002 Outpatient Historical [facility] Adult Hospitalists [address] [id number] Ronald Crockett MD [address] [place], [place] [address] [place] [address] Social History Tobacco Use Types Packs/Day Years [...] on filedocumented in this encounter Care Teams Inorganic Chemist Relationship Specialty Start Date End Date Ishan Crump MD [address] [place] [address] PCP - General Internal Medicine 02/14/20 documented as of this encounter
--- OUTSIDE RECORDS SUMMARY | 2025-04-21 09:19 | XMS_ITS | Encounter Summary ---
Author Organization [employer] Address [address] [place] [address] Care Team Providers Care Script Coordinator Name Role Phone Ishan Crump MD Primary Care Provider [phone] Encounter Details Date Type Department Care Team (Latest Contact Info) Description 03/15/2002 Inpatient Historical [facility] PATIENT IN [facility] BED Ronald Crockett MD [address] [place] [id number] CHOLEDOCHOLITHIASIS NOS (Primary Dx) Social History Tobacco Use Types [...] this encounter Visit Diagnoses Diagnosis Calculus of bile duct without mention of cholecystitis or obstruction- Primary documented in this encounter Care Teams Script Coordinator Relationship Specialty Start Date End Date Ishan Crump MD [address] [place] [id number] PCP - General Internal Medicine 02/14/20 documented as of this encounter
--- OUTSIDE RECORDS SUMMARY | 2025-04-21 09:19 | XMS_ITS | Encounter Summary ---
Author Organization [facility] Address [address] [place] [address] Care Team Providers Care Evs Tech Name Role Phone Ishan Crump MD Primary Care Provider [phone] Encounter Details Date Type Department Care Team (Late st Contact Info) Description 08/30/2001 Outpatient Historical [facility] Internal Medicine [place] [address] [facility] [address] [place] [phone] [place] [address] [facility] [place], [place] [id number] Social History Tobacco Use Types Packs/Day Years [...] on filedocumented in this encounter Care Teams Evs Tech Relationship Specialty Start Date End Date Ishan Crump MD [address] [place] [address] PCP - General Internal Medicine 02/14/20 documented as of this encounter
--- OUTSIDE RECORDS SUMMARY | 2025-04-21 09:19 | XMS_ITS | Encounter Summary ---
Author Organization [employer] Address [address] [place] [address] Care Team Providers Care Tile Shader Name Role Phone Ishan Crump MD Primary Care Provider [phone] Encounter Details Date Type Department Care Team (Late st Contact Info) Description 08/30/2001 Outpatient Historical [facility] Erica Meredith MD [address] [place] [phone] CHOLELITHIASIS NOS (Primary Dx) Social History Tobacco Use [...] encounter Visit Diagnoses Diagnosis Calculus of gallbladder without mention of cholecystitis or obstruction- Primary documented in this encounter Care Teams Tile Shader Relationship Specialty Start Date End Date Ishan Crump MD [address] [place] [address] PCP - General Internal Medicine 02/14/20 documented as of this encounter
--- OUTSIDE RECORDS SUMMARY | 2025-04-21 09:19 | XMS_ITS | Clinical Summary ---
Author Organization [facility] Address [address] [place] [address] Phone Care Team Providers Care Senior Quality Assurance Engineer Name Role Phone Ishan Crump MD Primary Care Provider [phone] Allergies Active Allergy Reactions Criticality Noted Date Comments Penicillins Unknown 09/29/2011 Penicillins Angioedema High 02/14/2020 Medications guaiFENesin SR (MUCINEX) 600 mg Oral tablet Take 1 Tab by mouth every 12 hours. 30 Tab 0 09/30/2011 Active oxyCODONE-aceta minophen (PERCOCET) 5-325 mg tabletIndicatio ns:Flexor tendon laceration of left wrist with open wound, initial encounter,Injur y of left wrist, initial encounter Take 1 Tablet by mouth every 4 hours as needed for Pain. Max Daily Amount: 6 Tablets 20 Tablet 02/14/2020 Active clindamycin HCL (CLEOCIN) 300 mg Capsule Take 1 Capsule (300 mg) by mouth 4 times daily. 40 Capsule 02/14/2020 Active gabapentin (Neurontin) 300 mg capsule Take 1 Capsule (300 mg) by mouth 3 times daily. 30 Capsule 02/14/2020 Active Active Problems Problem Noted Date Diagnosed Date Wrist injury 02/14/2020 Flexor tendon laceration of left wrist with open wound 02/14/2020 Hypokalemia 02/14/2020 Pneumonia 09/29/2011 LBBB (left bundle branch block) 09/29/2011 Immunizations Immunization Administration Dates Next Due (ADACEL/BOOSTRIX)(10 YR UP) TDAP VACCINE, 0.5ML, IM 02/14/2020 (PNEUMOVAX 23)(50 YRS UP) PN EUMOCOCCAL POLYSACCHARIDE (PPV23) 0.5 ML, IM 09/30/2011 Influenza Seasonal Unspecified Formulation IM Family History Medical History Relation Name Comments Colon Cancer Father Diabetes Maternal Grandfather Hypertension Mother Relation Name Status Comments Father Maternal Grandfather Mother Social History Tobacco Use Types Packs/Day Years Used Date Smoking Tobacco: Never Smokeless Tobacco: Never Alcohol Use Standard Drinks/Week Comments Yes 0 (1 standard drink = 0.6 oz pur e alcohol) seldom Sex and Gender Information Value Date Recorded Sex Assigned at Not on file Legal Sex Male 2:16 PM CDT Gender Identity Not on file Sexual Orientation Not on file Occupation Industry Job Start Date Job End Date Not on file Not on file Not on file Not on file Last Filed Vital Signs Vital Sign Reading Time Taken Comments Blood Pressure 139/78 02/14/2020 6:15 PM CDT Pulse 62 02/14/2020 6:15 PM CDT Temperature 37 C (98.6 F) 02/14/2020 3:15 PM CDT Respiratory Rate 18 02/14/2020 2:24 PM CDT Oxygen Saturation 99% 02/14/2020 6:15 PM CDT Inhaled Oxygen Concentration - - Weight 70.3 kg (155 lb) 02/14/2020 2:51 PM CDT Height 172.7 cm (5' 8) 02/14/2020 2:51 PM CDT Body Mass Index 23.57 02/14/2020 2:51 PM CDT Plan of Treatment Health Maintenance Due Date Last Done Comments COLORECTAL SCREENING 1999 Colorectal Cancer Screening 1999 FIT-DNA Q 3 years 1999 FIT/FOBT Q 1 year 1999 Flex Sig/CT Colonography Q 5 years 1999 ZOSTER VACCINE (1 of 2) 01/26/2004 PNEUMOCOCCAL VACCINE 50+ YEARS (2 of 2 - PCV) 09/30/19 13 09/30/2011 INFLUENZA VACCINE (#1) 2025 03/14/2011 RSV VACCINE (60+ or ) (1 - 1-dose 75+ series) 2029 DTAP/TDAP/TD VACCINES (2 - Td or Tdap) 02/13/2030 Insurance [employer] [id number] Advance Directives For more information, please contact: [phone] * Full Code (Latest Code Status on File) Date Activated Date Inactivated Comments 09/29/2011 6:01 PM 09/30/2011 2:48 PM Care Teams Senior Quality Assurance Engineer Relationship Specialty Start Date End Date Ishan Crump MD [address] [place] [address] PCP - General Internal Medicine 02/14/20
--- OUTSIDE RECORDS SUMMARY | 2025-04-21 09:19 | XMS_ITS | Encounter Summary ---
Author Organization [employer] Address [address] [place] [address] Care Team Providers Care Water Treatment Plant Supervisor Name Role Phone Ishan Crump MD Primary Care Provider Encounter Details Date Type Department Care Team (Late st Contact Info) Description 08/29/2001 Outpatient Historical [facility] Erica Mccloud MD [address] [place] [place] [phone] ABDOMINAL PAIN UNSPEC SITE (Primary Dx) Social History Tobacco Use Types Packs/Day Years Used Date Smoking Tobacco: Never Assessed Sex and Gender Information Value Date Recorded Sex Assigned at Not on file Legal Sex Male 2:16 PM CDT Gender Identity Not on file Sexual Orientation Not on file documented as of this encounter Plan of Treatment Not on file documented as of this encounter Visit Diagnoses Diagnosis Abdominal pain, unspecified site- Primary documented in this encounter Care Teams Water Treatment Plant Supervisor Relationship Specialty Start Date End Date Ishan Crump MD [address] [place] [phone] PCP - General Internal Medicine 02/14/20 documented as of this encounter
--- OUTSIDE RECORDS SUMMARY | 2025-04-21 09:19 | XMS_ITS | Encounter Summary ---
Author Organization [facility] Address [address] [place] [address] Care Team Providers Care Customs Examiner Name Role Phone Ishan Crump MD Primary Care Provider [phone] Encounter Details Date Type Department Care Team (Late st Contact Info) Description 03/17/2002 Outpatient Historical [facility] Adult Hospitalists [address] [phone] Ronald Crockett MD [address] [place], [place] [id number] [address] Social History Tobacco Use Types [...] on filedocumented in this encounter Care Teams Customs Examiner Relationship Specialty Start Date End Date Ishan Crump MD [address] [place] [address] PCP - General Internal Medicine 02/14/20 documented as of this encounter
--- OUTSIDE RECORDS SUMMARY | 2025-04-21 09:19 | XMS_ITS | Encounter Summary ---
Author Organization [facility] Address [address] [place] [address] Care Team Providers Care Coal Carrier Name Role Phone Ishan Crmup MD Primary Care Provider [phone] Encounter Details Date Type Department Care Team (Late st Contact Info) Description 01/06/2000 Outpatient Historical [facility] Internal Medicine [facility] [address] [facility] [address] [place] [address] Erica Rossi MD [address] [place] [address] Social History Tobacco Use Types Packs/Day Years [...] on filedocumented in this encounter Care Teams Coal Carrier Relationship Specialty Start Date End Date Ishan Crump MD [address] [place] [phone] PCP - General Internal Medicine 02/14/20 documented as of this encounter
[2025-04-21 10:16] LABS: Hematocrit 46.8 % (42.0-52.0); Hemoglobin 15.9 g/dL (14.0-18.0); Immature Granulocyte Percent A 1.8 % (0-0.5); Lymphocytes Absolute Auto 1.81 K/mm3 (0.9-3.2); Mean Corpuscular HGB Conc 34.0 g/dl (32-36); Mean Corpuscular Hemoglobin 30.8 pg (26-34); Mean Corpuscular Volume 90.5 fl (80-100); Nucleated Red Blood Cells Absolute Auto 0.000 K/mm3 (0.0-0.012); Nucleated Red Blood Cells Perc 0.0 % (0.0-0.2); Platelet Count Result 242 k/mm3 (150-375); Red Blood Count 5.17 M/mm3 (4.6-6.20); White Blood Count 7.4 K/mm3 (4.5-10.0)
[2025-04-21 10:38] LABS: Alanine Aminotransferase 37 U/L (6-50); Albumin Level 4.2 g/dL (3.5-5.1); Alkaline Phosphatase 73 U/L (38-126); Anion Gap 6 mmol/L (4-12); Aspartate Amino Transferase 32 U/L (17-59); Bilirubin,Total 0.9 mg/dL (0.2-1.3); Blood Urea Nitrogen 17 mg/dL (9-20); Calcium 9.1 mg/dL (8.4-10.2); Carbon Dioxide 27 mmol/L (22-30); Chloride 104 mmol/L (98-107); Cholesterol 157 mg/dL (0-200); Estimated Glomerular Filt Rate > 60; Glucose 107 mg/dL (65-110); HDL Direct 38 mg/dL; Potassium 4.3 mmol/L (3.4-5.0); Sodium 137 mmol/L (137-145); Total Protein 7.2 g/dL (6.3-8.2); Triglycerides 73 mg/dL (<150)
[2025-04-21 10:53] LABS: Free T4 Free Thyroxine 0.96 ng/dL (0.78-2.19)
[2025-04-21 11:12] LABS: Hemoglobin A1C 5.9 % (<5.7)
[2025-04-21 11:14] LABS: Thyroid Stimulating Hormone 2.680 uIU/mL (0.465-4.680)
== END 2025-04-21 09:16 | disposition home or self-care (01) ==
LOC: ANHLAB 09:16
PROVIDERS: PCP Physician Assistant; Visit Provider Physician Assistant
DX: R73.09 Other abnormal glucose (principal); Z13.220 Encounter for screening for lipoid disorders; Z79.899 Other long term (current) drug therapy
CPT/HCPCS: 36415; 80048; 80061; 80076; 83036; 84439; 84443; 85025